=== PATIENT | female | born 1945 | race Caucasian/White ===

== ENCOUNTER 2017-09-27 17:27 | Inpatient (IN) | payer MEDICARE ==
[~2017-09-27] VITALS: Ht 170.2 cm; Wt 74.4 kg
[2017-09-27 18:20] LABS: BASOPHILS % (AUTO) 0.9 % (0.0-5.0); EOSINOPHILS % (AUTO) 3.1 % (0.0-8.0); LYMPHOCYTES % (AUTO) 49.8 % (21.0-51.0); MEAN CORPUSCULAR HEMOGLOBIN 31.6 pg (27.0-33.0); MEAN CORPUSCULAR HGB CONC 35.1 g/dL (32.0-36.0); MONOCYTES % (AUTO) 10.6 % (3.0-13.0); NEUTROPHILS % (AUTO) 35.6 % (40.0-77.0); PLATELET COUNT (AUTO) 132 K/uL (130-400); RED BLOOD CELL COUNT(AUTO) 3.11 MIL/uL (4.00-5.50); RED CELL DISTRIBUTION WIDTH 21.2 % (11.0-15.5); WHITE BLOOD COUNT (AUTO) 2.9 K/uL (4.8-10.8)
[2017-09-27 18:30] LABS: CREATININE 1.4 mg/dL (0.5-1.5); POTASSIUM 4.6 mmol/L (3.5-5.1)
[2017-09-27 18:35] LABS: ALBUMIN 3.3 g/dL (3.5-5.0); BILIRUBIN,TOTAL 0.4 mg/dL (0.2-1.0); TOTAL PROTEIN, SERUM 6.6 g/dL (6.0-8.3)
[2017-09-27] MEDS ORDERED: SODIUM CHLORIDE 0.9% 1000ML 1,000 ML IV ONE (18:46)
[2017-09-27] MEDS ORDERED: ONDANSETRON HCL MDV 20ML 2 MG/ML VIAL ONE (18:46)
[2017-09-27] MEDS ORDERED: MORPHINE SULFATE 4 MG/1ML SYG ONE (18:47)
[2017-09-27] MEDS ORDERED: IOPAMIDOL-370 75 ML VIAL IV ONE (19:06)
[2017-09-27 19:45] LABS: APPEARANCE,URINE Clear (CLEAR); BILIRUBIN,URINE Negative (NEGATIVE); COLOR,URINE Yellow (YELLOW); GLUCOSE, URINE (UA) Negative (NEGATIVE); KETONES,URINE Negative (NEGATIVE); LEUKOCYTE ESTERASE ,URINE Negative (NEGATIVE); NITRATE,URINE Negative (NEGATIVE); OCCULT BLOOD,URINE Negative (NEGATIVE); PH,URINE 5.5 (5.0-8.0); PROTEIN,URINE Negative (NEGATIVE)
[2017-09-27 19:54] LABS: BAND NEUTROPHILS % (MANUAL) 4 % (0-2); EOSINOPHILS % (MANUAL) 1 % (1-6); LYMPHOCYTES % (MANUAL) 44 % (22-44); MONOCYTES % (MANUAL) 5 % (2-9); REACTIVE LYMPHOCYTES 2 % (0-0); SEGMENTED NEUTROPHILS % 44 % (40-70)
[2017-09-27 19:55] LABS: MAN.DIFF COMMENT-IMPRESSION MANUAL DIFFERENTIAL
[2017-09-27] MEDS ORDERED: LACTULOSE 20 GM/30 ML UDCUP ONE (20:35)
[2017-09-27 23:00] VITALS: BP 124/58
[2017-09-28] MEDS: SODIUM CHLORIDE 0.9% 1000ML 1,000 ML IV SCH ×2 (01:15→18:02)
[2017-09-28] MEDS ORDERED: ONDANSETRON HCL MDV 20ML 2 MG/ML VIAL IVP PRN (01:15)
[2017-09-28] MEDS: LACTULOSE 20 GM/30 ML UDCUP PO SCH ×4 (02:14→22:51)
[2017-09-28 04:09] VITALS: BP 112/52
[2017-09-28 05:48] LABS: HEMATOCRIT 25.5 % (36-48); MEAN CORPUSCULAR HEMOGLOBIN 30.3 pg (27.0-33.0); MEAN CORPUSCULAR HGB CONC 33.2 g/dL (32.0-36.0); MEAN CORPUSCULAR VOLUME 91.3 fL (79-99); NUCLEATED RED BLOOD CELLS 0.1 % (0.0-0.19); PLATELET COUNT (AUTO) 117 K/uL (130-400); RED CELL DISTRIBUTION WIDTH 21.4 % (11.0-15.5); WHITE BLOOD COUNT (AUTO) 2.8 K/uL (4.8-10.8)
[2017-09-28 05:57] LABS: BILIRUBIN,TOTAL 0.3 mg/dL (0.2-1.0); CREATININE 1.6 mg/dL (0.5-1.5); POTASSIUM 4.5 mmol/L (3.5-5.1); TOTAL PROTEIN, SERUM 6.1 g/dL (6.0-8.3)
[2017-09-28 08:00] VITALS: BP 122/75
[2017-09-28] MEDS ORDERED: POTASSIUM CHLORIDE 20 MEQ ERTAB PO PRN (08:00)
[2017-09-28] MEDS ORDERED: GUAIFENESIN-DM 200/20 MG 10 ML PO PRN (08:00)
[2017-09-28] MEDS ORDERED: MAG HYDROX/AL HYDROX/SIMETH ES 30 ML SUSP UDCUP PO PRN (08:00)
[2017-09-28] MEDS ORDERED: LACTULOSE 20 GM/30 ML UDCUP PO PRN (08:00)
[2017-09-28] MEDS ORDERED: NITROGLYCERIN 0.4 MG SL TAB SL PRN (08:00)
[2017-09-28] MEDS ORDERED: POTASSIUM CHLORIDE 20MEQ/100ML 100 ML IV PRN (08:00)
[2017-09-28] MEDS ORDERED: LIDOCAINE HCL-MPF 1% 2ML VIAL IVP PRN (08:00)
[2017-09-28] MEDS ORDERED: ONDANSETRON HCL 4 MG/2 ML VIAL IV PRN (08:00)
[2017-09-28] MEDS ORDERED: HYDRALAZINE HCL 20 MG/ML VIAL IV PRN ×2 (08:00→08:45)
[2017-09-28] MEDS ORDERED: POTASSIUM CHLORIDE 10% ELIXIR 20 MEQ/15 ML UDCUP PO PRN (08:00)
[2017-09-28] MEDS ORDERED: GADOBENATE DIMEGLUMINE 10 ML IV ONE (08:25)
[2017-09-28] MEDS: FAMOTIDINE 20MG TAB 20 MG TAB PO SCH ×2 (09:09→22:51)
[2017-09-28] MEDS: ENOXAPARIN SODIUM 40 MG/0.4 ML SYRINGE SQ SCH (09:10)
[2017-09-28] MEDS: MORPHINE SULFATE 4 MG/1ML SYG IV PRN (10:50)
[2017-09-28 12:00] VITALS: BP 126/61
[2017-09-28] MEDS: ALBUMIN (HUMAN) 25% 100 ML IV SCH ×2 (12:03→17:56)
[2017-09-28 16:00] VITALS: BP 123/59
[2017-09-28 20:00] VITALS: BP 142/70
[2017-09-29] VITALS: BP 134/74
[2017-09-29] MEDS: ALBUMIN (HUMAN) 25% 100 ML IV SCH (00:36)
[2017-09-29] MEDS: LACTULOSE 20 GM/30 ML UDCUP PO SCH ×6 (00:36→20:21)
[2017-09-29 04:00] VITALS: BP 140/63
[2017-09-29 04:40] LABS: HEMATOCRIT 22.5 % (36-48); MEAN CORPUSCULAR HEMOGLOBIN 32.2 pg (27.0-33.0); MEAN CORPUSCULAR HGB CONC 35.4 g/dL (32.0-36.0); MEAN CORPUSCULAR VOLUME 91.1 fL (79-99); NUCLEATED RED BLOOD CELLS 0.2 % (0.0-0.19); PLATELET COUNT (AUTO) 118 K/uL (130-400); RED BLOOD CELL COUNT(AUTO) 2.47 MIL/uL (4.00-5.50); RED CELL DISTRIBUTION WIDTH 22.3 % (11.0-15.5); WHITE BLOOD COUNT (AUTO) 2.3 K/uL (4.8-10.8)
[2017-09-29 04:50] LABS: CREATININE 1.4 mg/dL (0.5-1.5); POTASSIUM 4.7 mmol/L (3.5-5.1)
[2017-09-29 05:42] LABS: BAND NEUTROPHILS % (MANUAL) 5 % (0-2); BASOPHILS % (MANUAL) 1 % (0-2); EOSINOPHILS % (MANUAL) 2 % (1-6); LYMPHOCYTES % (MANUAL) 53 % (22-44); MAN.DIFF COMMENT-IMPRESSION MANUAL DIFFERENTIAL; MONOCYTES % (MANUAL) 8 % (2-9); SEGMENTED NEUTROPHILS % 31 % (40-70)
[2017-09-29 05:43] LABS: PLATELET MORPHOLOGY COMMENT SLIGHTLY DECREASED
[2017-09-29 07:41] VITALS: BP 130/70
[2017-09-29] MEDS: FAMOTIDINE 20MG TAB 20 MG TAB PO SCH ×2 (08:40→20:21)
[2017-09-29] MEDS: ENOXAPARIN SODIUM 40 MG/0.4 ML SYRINGE SQ SCH (08:41)
[2017-09-29] MEDS ORDERED: DIAZ5ORA PO (08:48)
[2017-09-29] MEDS ORDERED: CREON12 PO (08:48)
[2017-09-29] MEDS ORDERED: FOLI0.8C PO (08:55)
[2017-09-29] MEDS ORDERED: ESTR-3 PO (08:55)
[2017-09-29] MEDS ORDERED: LYSI100014 PO (08:55)
[2017-09-29] MEDS ORDERED: SPIR100T5 PO (08:55)
[2017-09-29] MEDS ORDERED: ENAL10TA PO (08:55)
[2017-09-29] MEDS ORDERED: PENT400T12 PO (08:55)
[2017-09-29] MEDS ORDERED: GLUC-208 PO (08:55)
[2017-09-29] MEDS ORDERED: DILT240C3 PO (08:55)
[2017-09-29] MEDS: MORPHINE SULFATE 4 MG/1ML SYG IV PRN (10:38)
[2017-09-29] MEDS ORDERED: BISM525O10 PO (10:41)
[2017-09-29 12:00] VITALS: BP 108/51
[2017-09-29] MEDS: RIFAXIMIN 550 MG TABLET PO SCH ×2 (13:21→20:21)
[2017-09-29 15:58] VITALS: BP 117/64
[2017-09-29 20:00] VITALS: BP 126/64
[2017-09-30] VITALS: BP 128/68
[2017-09-30] MEDS: LACTULOSE 20 GM/30 ML UDCUP PO SCH ×4 (00:26→12:38)
[2017-09-30 04:00] VITALS: BP 132/68
[2017-09-30 04:43] LABS: MEAN CORPUSCULAR HEMOGLOBIN 30.7 pg (27.0-33.0); MEAN CORPUSCULAR HGB CONC 34.1 g/dL (32.0-36.0); MEAN CORPUSCULAR VOLUME 90.1 fL (79-99); NUCLEATED RED BLOOD CELLS 0.3 % (0.0-0.19); PLATELET COUNT (AUTO) 126 K/uL (130-400); RED BLOOD CELL COUNT(AUTO) 2.66 MIL/uL (4.00-5.50); RED CELL DISTRIBUTION WIDTH 22.3 % (11.0-15.5); WHITE BLOOD COUNT (AUTO) 2.4 K/uL (4.8-10.8)
[2017-09-30 04:48] LABS: CREATININE 1.4 mg/dL (0.5-1.5); POTASSIUM 4.1 mmol/L (3.5-5.1)
[2017-09-30 05:16] LABS: BAND NEUTROPHILS % (MANUAL) 11 % (0-2); BASOPHILS % (MANUAL) 2 % (0-2); EOSINOPHILS % (MANUAL) 5 % (1-6); LYMPHOCYTES % (MANUAL) 37 % (22-44); MONOCYTES % (MANUAL) 6 % (2-9); REACTIVE LYMPHOCYTES 6 % (0-0); SEGMENTED NEUTROPHILS % 33 % (40-70)
[2017-09-30 05:17] LABS: MAN.DIFF COMMENT-IMPRESSION MANUAL DIFFERENTIAL; PLATELET MORPHOLOGY COMMENT ADEQUATE
[2017-09-30 08:05] VITALS: BP 146/71
[2017-09-30 11:31] VITALS: BP 154/76
[2017-09-30] MEDS: RIFAXIMIN 550 MG TABLET PO SCH (12:38)
[2017-09-30] MEDS: ENOXAPARIN SODIUM 40 MG/0.4 ML SYRINGE SQ SCH (12:39)
[2017-09-30] MEDS: FAMOTIDINE 20MG TAB 20 MG TAB PO SCH (12:39)
[2017-09-30] MEDS ORDERED: HEPARIN SODIUM/PF 100UNIT/ML 5ML SYRINGE IV SCH (12:45)
== END 2017-09-30 14:25 | disposition home or self-care (01) | DRG 441 ==
LOC: EDH 17:27 → EDHIP 17:28 → INTOOBSV 18:13 → OBSVTOIN 18:13 → EDHIP 18:13 → UNDOADMOB 18:13 → EDHIP 22:27 → 3BH 22:27
PROVIDERS: ADMIT Internal Medicine Hematology & Oncology; ATTEND Internal Medicine Hematology & Oncology
DX: K72.90 Hepatic failure, unspecified without coma (principal); G93.41 Metabolic encephalopathy; N17.9 Acute kidney failure, unspecified; D61.811 Other drug-induced pancytopenia; R18.8 Other ascites; C25.9 Malignant neoplasm of pancreas, unspecified; C78.6 Secondary malignant neoplasm of retroperitoneum and peritoneum; E86.0 Dehydration; N28.1 Cyst of kidney, acquired; D64.9 Anemia, unspecified; I10 Essential (primary) hypertension; K76.0 Fatty (change of) liver, not elsewhere classified; Z85.3 Personal history of malignant neoplasm of breast; Z85.820 Personal history of malignant melanoma of skin; Z90.411 Acquired partial absence of pancreas; Z92.21 Personal history of antineoplastic chemotherapy; Z51.11 Encounter for antineoplastic chemotherapy; Z88.8 Allergy status to other drugs, medicaments and biological substances
CPT/HCPCS: 36415; 70553; 74178; 80048; 80053; 81003; 82140; 85025; 85027; A9577; G0378; J1642; J1650; J2270; J2405; J7030; P9046; Q9967

== ENCOUNTER 2017-10-07 17:03 | Inpatient (IN) | payer MEDICARE ==
[~2017-10-07] VITALS: Ht 170.2 cm; Wt 80.1 kg
[~2017-10-07 17:03] MED LIST: BISM525O10 PO; CREON12 PO; DIAZ5ORA PO; DILT240C3 PO; ENAL10TA PO; ESTR-3 PO; FOLI0.8C PO; GLUC-208 PO; LYSI100014 PO; PENT400T12 PO; SPIR100T5 PO
[2017-10-07 17:41] LABS: BASOPHILS % (AUTO) 0.5 % (0.0-5.0); EOSINOPHILS % (AUTO) 0.4 % (0.0-8.0); HEMATOCRIT 26.6 % (36-48); LYMPHOCYTES % (AUTO) 23.1 % (21.0-51.0); MEAN CORPUSCULAR HEMOGLOBIN 32.6 pg (27.0-33.0); MEAN CORPUSCULAR HGB CONC 34.7 g/dL (32.0-36.0); NUCLEATED RED BLOOD CELLS 0.3 % (0.0-0.19); PLATELET COUNT (AUTO) 217 K/uL (130-400); RED BLOOD CELL COUNT(AUTO) 2.83 MIL/uL (4.00-5.50); WHITE BLOOD COUNT (AUTO) 9.1 K/uL (4.8-10.8)
[2017-10-07 17:51] LABS: CREATININE 1.7 mg/dL (0.5-1.5); POTASSIUM 4.9 mmol/L (3.5-5.1)
[2017-10-07 18:04] LABS: ALBUMIN 3.9 g/dL (3.5-5.0); BILIRUBIN,TOTAL 0.3 mg/dL (0.2-1.0); TOTAL PROTEIN, SERUM 7.2 g/dL (6.0-8.3)
[2017-10-07 19:36] LABS: APPEARANCE,URINE Clear (CLEAR); BILIRUBIN,URINE Negative (NEGATIVE); COLOR,URINE Yellow (YELLOW); GLUCOSE, URINE (UA) Negative (NEGATIVE); KETONES,URINE Negative (NEGATIVE); LEUKOCYTE ESTERASE ,URINE Negative (NEGATIVE); NITRATE,URINE Negative (NEGATIVE); OCCULT BLOOD,URINE Negative (NEGATIVE); PROTEIN,URINE Negative (NEGATIVE)
[2017-10-07 19:50] VITALS: BP 137/70
[2017-10-07] MEDS ORDERED: SODIUM CHLORIDE 0.9% 1000ML 1,000 ML IV SCH (21:15)
[2017-10-07] MEDS: LACTULOSE 20 GM/30 ML UDCUP PO SCH (22:23)
[2017-10-07] MEDS: RIFAXIMIN 550 MG TABLET PO SCH (23:19)
[2017-10-08 00:08] VITALS: BP 130/68
[2017-10-08] MEDS ORDERED: ONDANSETRON 4 MG TABLET PO PRN (00:45)
[2017-10-08] MEDS ORDERED: ACETAMINOPHEN 325 MG TAB PO PRN ×3 (00:45→09:15)
[2017-10-08] MEDS ORDERED: ONDANSETRON 4 MG TABLET ONE (01:04)
[2017-10-08] MEDS: LACTULOSE 20 GM/30 ML UDCUP PO SCH ×6 (01:09→22:05)
[2017-10-08] MEDS: MORPHINE SULFATE 4 MG/1ML SYG IVP PRN ×3 (01:09→23:55)
[2017-10-08] MEDS ORDERED: PENT1TAB3 PO (02:44)
[2017-10-08] MEDS ORDERED: RIFA550T PO (02:44)
[2017-10-08 04:40] VITALS: BP 147/61
[2017-10-08 04:43] LABS: HEMATOCRIT 24.9 % (36-48); MEAN CORPUSCULAR HEMOGLOBIN 31.2 pg (27.0-33.0); MEAN CORPUSCULAR HGB CONC 33.3 g/dL (32.0-36.0); MEAN CORPUSCULAR VOLUME 93.6 fL (79-99); NUCLEATED RED BLOOD CELLS 0.2 % (0.0-0.19); PLATELET COUNT (AUTO) 182 K/uL (130-400); RED BLOOD CELL COUNT(AUTO) 2.66 MIL/uL (4.00-5.50); RED CELL DISTRIBUTION WIDTH 25.1 % (11.0-15.5); WHITE BLOOD COUNT (AUTO) 9.3 K/uL (4.8-10.8)
[2017-10-08 05:02] LABS: CREATININE 1.7 mg/dL (0.5-1.5); POTASSIUM 5.3 mmol/L (3.5-5.1)
[2017-10-08 08:00] VITALS: BP 114/65
[2017-10-08] MEDS ORDERED: PANTOPRAZOLE 40 MG/VIAL IVP SCH (09:00)
[2017-10-08] MEDS: RIFAXIMIN 550 MG TABLET PO SCH ×2 (09:08→22:05)
[2017-10-08] MEDS ORDERED: MAG HYDROX/AL HYDROX/SIMETH ES 30 ML SUSP UDCUP PO PRN (09:15)
[2017-10-08] MEDS ORDERED: GUAIFENESIN-DM 200/20 MG 10 ML PO PRN (09:15)
[2017-10-08] MEDS ORDERED: ONDANSETRON HCL 4 MG/2 ML VIAL IV PRN (09:15)
[2017-10-08] MEDS ORDERED: LACTULOSE 20 GM/30 ML UDCUP PO PRN (09:15)
[2017-10-08] MEDS ORDERED: NITROGLYCERIN 0.4 MG SL TAB SL PRN (09:15)
[2017-10-08] MEDS ORDERED: HYDRALAZINE HCL 20 MG/ML VIAL IV PRN (09:15)
[2017-10-08 11:00] VITALS: BP 110/55
[2017-10-08] MEDS: DILTIAZEM HCL 120 MG CAP.SR.24H PO SCH (11:48)
[2017-10-08] MEDS: [UNRECOGNIZED DRUG - OTHER] PO SCH ×2 (11:48→17:33)
[2017-10-08] MEDS: ALBUMIN (HUMAN) 25% 100 ML IV SCH ×3 (11:50→23:39)
[2017-10-08 12:06] LABS: INR 1.03 (0.85-1.15); PARTIAL THROMBOPLASTIN TIME 20.4 SEC (26.3-35.5); PROTHROMBIN TIME 10.8 SEC (9.6-11.6)
[2017-10-08] MEDS: SODIUM CHLORIDE 0.9% 1000ML 1,000 ML IV SCH (13:00)
[2017-10-08] MEDS: PENTOXIFYLLINE 400 MG TABLET.SA PO SCH ×2 (17:33→22:05)
[2017-10-08] MEDS ORDERED: RIFAXIMIN 550 MG TABLET PO SCH (21:00)
[2017-10-09 00:29] VITALS: BP 136/62
[2017-10-09] MEDS: LACTULOSE 20 GM/30 ML UDCUP PO SCH ×6 (01:35→21:26)
[2017-10-09] MEDS: MORPHINE SULFATE 4 MG/1ML SYG IVP PRN ×2 (04:14→12:11)
[2017-10-09 04:35] VITALS: BP 151/76
[2017-10-09 07:00] LABS: MEAN CORPUSCULAR VOLUME 94.4 fL (79-99); NUCLEATED RED BLOOD CELLS 0.2 % (0.0-0.19); PLATELET COUNT (AUTO) 141 K/uL (130-400); RED BLOOD CELL COUNT(AUTO) 2.08 MIL/uL (4.00-5.50); RED CELL DISTRIBUTION WIDTH 25.7 % (11.0-15.5)
[2017-10-09 07:03] LABS: HEMATOCRIT 19.7 % (36-48)
[2017-10-09 07:17] LABS: CREATININE 1.3 mg/dL (0.5-1.5); POTASSIUM 3.7 mmol/L (3.5-5.1)
[2017-10-09] MEDS: [UNRECOGNIZED DRUG - OTHER] PO SCH ×3 (07:30→18:00)
[2017-10-09 08:00] VITALS: BP 142/74
[2017-10-09] MEDS: PANTOPRAZOLE SODIUM 40 MG TABLET.DR PO SCH (08:28)
[2017-10-09] MEDS: SODIUM CHLORIDE 0.9% 1000ML 1,000 ML IV SCH ×2 (09:00→21:26)
[2017-10-09] MEDS: LYSINE 1000 MG PO SCH (09:00)
[2017-10-09] MEDS: PENTOXIFYLLINE 400 MG TABLET.SA PO SCH ×3 (09:00→21:26)
[2017-10-09] MEDS: RIFAXIMIN 550 MG TABLET PO SCH ×2 (10:24→21:26)
[2017-10-09] MEDS: GLUCOSAMINE-CHONDROITIN PO SCH (10:24)
[2017-10-09] MEDS: FOLIC ACID 1 MG TABLET PO SCH (10:24)
[2017-10-09] MEDS: DILTIAZEM HCL 120 MG CAP.SR.24H PO SCH (10:25)
[2017-10-09 11:00] VITALS: BP 128/69
[2017-10-09 16:00] VITALS: BP 134/77
[2017-10-09] MEDS ORDERED: SODIUM CHLORIDE 0.9% 500ML 500 ML IV ONE (17:38)
[2017-10-09 19:40] VITALS: BP 138/69
[2017-10-09] MEDS: SODIUM BICARBONATE 650 MG TAB PO SCH (21:26)
[2017-10-09] MEDS: MORPHINE SULFATE 2 MG/ML 1ML SYG IVP PRN (21:27)
[2017-10-10 00:29] VITALS: BP 156/89
[2017-10-10] MEDS: LACTULOSE 20 GM/30 ML UDCUP PO SCH ×6 (01:09→22:09)
[2017-10-10] MEDS: MORPHINE SULFATE 2 MG/ML 1ML SYG IVP PRN ×2 (03:51→23:14)
[2017-10-10 04:00] VITALS: BP 140/74
[2017-10-10] MEDS: SODIUM CHLORIDE 0.9% 1000ML 1,000 ML IV SCH (05:13)
[2017-10-10 05:38] LABS: HEMATOCRIT 30.5 % (36-48); MEAN CORPUSCULAR HEMOGLOBIN 31.9 pg (27.0-33.0); MEAN CORPUSCULAR HGB CONC 34.4 g/dL (32.0-36.0); MEAN CORPUSCULAR VOLUME 92.7 fL (79-99); PLATELET COUNT (AUTO) 138 K/uL (130-400); RED BLOOD CELL COUNT(AUTO) 3.28 MIL/uL (4.00-5.50); RED CELL DISTRIBUTION WIDTH 22.4 % (11.0-15.5); WHITE BLOOD COUNT (AUTO) 9.5 K/uL (4.8-10.8)
[2017-10-10 05:47] LABS: BAND NEUTROPHILS % (MANUAL) 1 % (0-2); LYMPHOCYTES % (MANUAL) 14 % (22-44); MAN.DIFF COMMENT-IMPRESSION MANUAL DIFFERENTIAL; MONOCYTES % (MANUAL) 9 % (2-9); PLATELET MORPHOLOGY COMMENT SLIGHTLY DECREASED; SEGMENTED NEUTROPHILS % 76 % (40-70)
[2017-10-10 05:52] LABS: CREATININE 1.4 mg/dL (0.5-1.5); POTASSIUM 3.8 mmol/L (3.5-5.1)
[2017-10-10 06:19] LABS: FERRITIN 141 ng/mL (15-150); IRON, SERUM 110 mcg/dL (50-170)
[2017-10-10] MEDS: [UNRECOGNIZED DRUG - OTHER] PO SCH ×3 (07:30→15:31)
[2017-10-10] MEDS: PANTOPRAZOLE SODIUM 40 MG TABLET.DR PO SCH ×2 (07:30→15:32)
[2017-10-10 08:00] VITALS: BP 138/86
[2017-10-10] MEDS: LYSINE 1000 MG PO SCH (09:00)
[2017-10-10] MEDS: PENTOXIFYLLINE 400 MG TABLET.SA PO SCH ×3 (09:00→22:10)
[2017-10-10] MEDS: SODIUM BICARBONATE 650 MG TAB PO SCH ×2 (09:00→22:10)
[2017-10-10] MEDS: RIFAXIMIN 550 MG TABLET PO SCH ×2 (09:00→22:10)
[2017-10-10 11:00] VITALS: BP 157/85
[2017-10-10] MEDS: DILTIAZEM HCL 120 MG CAP.SR.24H PO SCH (15:32)
[2017-10-10] MEDS: FOLIC ACID 1 MG TABLET PO SCH (15:32)
[2017-10-10] MEDS: GLUCOSAMINE-CHONDROITIN PO SCH (15:32)
[2017-10-10 16:00] VITALS: BP 152/81
[2017-10-11] MEDS: LACTULOSE 20 GM/30 ML UDCUP PO SCH ×6 (01:19→21:52)
[2017-10-11] MEDS ORDERED: IPRATROPIUM/ALBUTEROL SULFATE 3 ML SOLUTION IH PRN (02:00)
[2017-10-11] MEDS ORDERED: IPRATROPIUM/ALBUTEROL SULFATE 3 ML SOLUTION IH ONE (02:10)
[2017-10-11 04:00] VITALS: BP 148/70
[2017-10-11] MEDS: [UNRECOGNIZED DRUG - OTHER] PO SCH ×3 (06:14→16:40)
[2017-10-11 06:38] LABS: HEMATOCRIT 30.5 % (36-48); MEAN CORPUSCULAR HEMOGLOBIN 32.9 pg (27.0-33.0); MEAN CORPUSCULAR HGB CONC 35.4 g/dL (32.0-36.0); MEAN CORPUSCULAR VOLUME 92.9 fL (79-99); PLATELET COUNT (AUTO) 136 K/uL (130-400); RED BLOOD CELL COUNT(AUTO) 3.29 MIL/uL (4.00-5.50); RED CELL DISTRIBUTION WIDTH 22.4 % (11.0-15.5); WHITE BLOOD COUNT (AUTO) 9.7 K/uL (4.8-10.8)
[2017-10-11 07:17] LABS: CREATININE 1.2 mg/dL (0.5-1.5); POTASSIUM 4.1 mmol/L (3.5-5.1)
[2017-10-11 08:00] VITALS: BP 140/75
[2017-10-11 08:09] LABS: BAND NEUTROPHILS % (MANUAL) 3 % (0-2); LYMPHOCYTES % (MANUAL) 13 % (22-44); MAN.DIFF COMMENT-IMPRESSION MANUAL DIFFERENTIAL; MONOCYTES % (MANUAL) 7 % (2-9); SEGMENTED NEUTROPHILS % 77 % (40-70)
[2017-10-11 08:13] LABS: PLATELET MORPHOLOGY COMMENT ADEQUATE
[2017-10-11] MEDS: LYSINE 1000 MG PO SCH (09:00)
[2017-10-11] MEDS: MORPHINE SULFATE 2 MG/ML 1ML SYG IVP PRN ×4 (09:46→22:01)
[2017-10-11] MEDS: GLUCOSAMINE-CHONDROITIN PO SCH (09:52)
[2017-10-11] MEDS: FOLIC ACID 1 MG TABLET PO SCH (09:53)
[2017-10-11] MEDS: PENTOXIFYLLINE 400 MG TABLET.SA PO SCH ×3 (09:53→21:52)
[2017-10-11] MEDS: RIFAXIMIN 550 MG TABLET PO SCH ×2 (09:53→21:52)
[2017-10-11] MEDS: SODIUM BICARBONATE 650 MG TAB PO SCH ×2 (09:53→21:52)
[2017-10-11] MEDS: DILTIAZEM HCL 120 MG CAP.SR.24H PO SCH (09:53)
[2017-10-11 16:00] VITALS: BP 127/77
[2017-10-11 19:49] VITALS: BP 131/75
[2017-10-12] MEDS: LACTULOSE 20 GM/30 ML UDCUP PO SCH ×4 (01:15→14:46)
[2017-10-12] MEDS: MORPHINE SULFATE 2 MG/ML 1ML SYG IVP PRN (01:23)
[2017-10-12 04:00] VITALS: BP 130/83
[2017-10-12 04:41] LABS: HEMATOCRIT 32.8 % (36-48); MEAN CORPUSCULAR HEMOGLOBIN 33.3 pg (27.0-33.0); MEAN CORPUSCULAR HGB CONC 35.4 g/dL (32.0-36.0); MEAN CORPUSCULAR VOLUME 93.9 fL (79-99); NUCLEATED RED BLOOD CELLS 0.1 % (0.0-0.19); PLATELET COUNT (AUTO) 152 K/uL (130-400); RED BLOOD CELL COUNT(AUTO) 3.49 MIL/uL (4.00-5.50); RED CELL DISTRIBUTION WIDTH 22.7 % (11.0-15.5); WHITE BLOOD COUNT (AUTO) 9.1 K/uL (4.8-10.8)
[2017-10-12 04:54] LABS: CREATININE 1.3 mg/dL (0.5-1.5); POTASSIUM 4.3 mmol/L (3.5-5.1)
[2017-10-12] MEDS: PANTOPRAZOLE SODIUM 40 MG TABLET.DR PO SCH (05:49)
[2017-10-12] MEDS: [UNRECOGNIZED DRUG - OTHER] PO SCH ×2 (05:49→14:46)
[2017-10-12] MEDS: LYSINE 1000 MG PO SCH (09:00)
[2017-10-12] MEDS: FOLIC ACID 1 MG TABLET PO SCH (09:48)
[2017-10-12] MEDS: DILTIAZEM HCL 120 MG CAP.SR.24H PO SCH (09:48)
[2017-10-12] MEDS: SODIUM BICARBONATE 650 MG TAB PO SCH (09:48)
[2017-10-12] MEDS: GLUCOSAMINE-CHONDROITIN PO SCH (09:48)
[2017-10-12] MEDS: PENTOXIFYLLINE 400 MG TABLET.SA PO SCH ×2 (09:49→14:46)
[2017-10-12] MEDS: RIFAXIMIN 550 MG TABLET PO SCH (09:49)
[2017-10-12 11:35] VITALS: BP 162/93
[2017-10-12] MEDS ORDERED: HEPARIN SODIUM/PF 100UNIT/ML 5ML SYRINGE IV SCH (15:45)
[2017-11-20] MEDS ORDERED: LEVO100T6 PO (06:23)
== END 2017-10-12 16:40 | disposition left against medical advice (07) | DRG 442 ==
LOC: EDH 17:03 → EDHIP 17:04 → 3DH 19:37
PROVIDERS: ADMIT Internal Medicine Hematology & Oncology; ATTEND Internal Medicine Hematology & Oncology
PROC: 30233N1 Transfusion of Nonautologous Red Blood Cells into Peripheral Vein, Percutaneous Approach (ICD-10-PCS; principal; 2017-10-09)
DX: K72.90 Hepatic failure, unspecified without coma (principal); C25.9 Malignant neoplasm of pancreas, unspecified; N17.9 Acute kidney failure, unspecified; E87.2 Acidosis; E86.0 Dehydration; C43.9 Malignant melanoma of skin, unspecified; D63.8 Anemia in other chronic diseases classified elsewhere; E27.9 Disorder of adrenal gland, unspecified; I10 Essential (primary) hypertension; Z51.5 Encounter for palliative care; E78.5 Hyperlipidemia, unspecified; E87.6 Hypokalemia; K76.0 Fatty (change of) liver, not elsewhere classified; M54.10 Radiculopathy, site unspecified; Z90.411 Acquired partial absence of pancreas; Z51.11 Encounter for antineoplastic chemotherapy; Z85.3 Personal history of malignant neoplasm of breast; Z85.820 Personal history of malignant melanoma of skin; Z88.8 Allergy status to other drugs, medicaments and biological substances
CPT/HCPCS: 36415; 36430; 74176; 76700; 80048; 80053; 81003; 82140; 82270; 82728; 83540; 83605; 85025; 85027; 85610; 85730; 86850; 86900; 86901; 86922; 94640; 94664; 97039; C9113; J1642; J2270; J2405; J7030; J7040; P9016; P9046; Q0162

== ENCOUNTER 2018-01-13 14:49 | Inpatient (IN) | payer MEDICARE ==
[~2018-01-13] VITALS: Ht 177.8 cm; Wt 64.4 kg
[~2018-01-13 14:49] MED LIST changes: +LEVO100T6 PO; +PENT1TAB3 PO; +RIFA550T PO
[2018-01-13 15:17] LABS: BASOPHILS % (AUTO) 0.1 % (0.0-5.0); EOSINOPHILS % (AUTO) 2.6 % (0.0-8.0); HEMATOCRIT 29.5 % (36-48); LYMPHOCYTES % (AUTO) 7.9 % (21.0-51.0); MEAN CORPUSCULAR HEMOGLOBIN 32.7 pg (27.0-33.0); MEAN CORPUSCULAR HGB CONC 32.8 g/dL (32.0-36.0); MEAN CORPUSCULAR VOLUME 99.9 fL (79-99); MONOCYTES % (AUTO) 7.7 % (3.0-13.0); NEUTROPHILS % (AUTO) 81.7 % (40.0-77.0); NUCLEATED RED BLOOD CELLS 0.3 % (0.0-0.19); PLATELET COUNT (AUTO) 97 K/uL (130-400); RED BLOOD CELL COUNT(AUTO) 2.96 MIL/uL (4.00-5.50); RED CELL DISTRIBUTION WIDTH 15.6 % (11.0-15.5); WHITE BLOOD COUNT (AUTO) 1.9 K/uL (4.8-10.8)
[2018-01-13 15:30] LABS: CARBON DIOXIDE 22 mmol/L (21-32); CHLORIDE 96 mmol/L (101-111); CREATININE 1.3 mg/dL (0.5-1.5); GLOMERULAR FILTR. RATE CALC 43 mL/min (>60); GLUCOSE,RANDOM 187 mg/dL (70-105); POTASSIUM 5.2 mmol/L (3.5-5.1); SODIUM SERUM 129 mmol/L (136-145); UREA NITROGEN, BLOOD 28 mg/dL (7-18)
[2018-01-13 15:35] LABS: ALANINE AMINOTRANSFERASE 62 U/L (12-78); AMYLASE 58 U/L (25-115); ASPARTATE AMINOTRANSFERASE 39 U/L (10-37); BILIRUBIN,TOTAL 0.6 mg/dL (0.2-1.0); LIPASE < 50 U/L (114-286); TOTAL PROTEIN, SERUM 6.6 g/dL (6.0-8.3)
[2018-01-13] MEDS ORDERED: SODIUM CHLORIDE 0.9% 1000ML 1,000 ML IV ONE (16:07)
[2018-01-13 16:32] LABS: BAND NEUTROPHILS % (MANUAL) 15 % (0-2); LYMPHOCYTES % (MANUAL) 6 % (22-44); MAN.DIFF COMMENT-IMPRESSION MANUAL DIFFERENTIAL; MONOCYTES % (MANUAL) 11 % (2-9); SEGMENTED NEUTROPHILS % 68 % (40-70)
[2018-01-13 16:33] LABS: PLATELET MORPHOLOGY COMMENT DECREASED
[2018-01-13 17:45] VITALS: BP 104/68
[2018-01-13 19:00] VITALS: BP 121/64
[2018-01-13] MEDS ORDERED: AMYL1CAP62 PO (19:09)
[2018-01-13] MEDS ORDERED: MAGIC240 MM (19:12)
[2018-01-13] MEDS ORDERED: DICY20TA11 PO (19:12)
[2018-01-13] MEDS: ONDANSETRON HCL 4 MG/2 ML VIAL IVP PRN (20:32)
[2018-01-13] MEDS: MORPHINE SULFATE 4 MG/1ML SYG IVP PRN (20:37)
[2018-01-13] MEDS: LEVOFLOXACIN 500 MG/D5W 100 ML 100 ML IV SCH (22:48)
[2018-01-13] MEDS: METRONIDAZOLE 500 MG TABLET PO SCH (22:49)
[2018-01-14] VITALS (7 sets, daily range): BP systolic 120–134; BP diastolic 58–69
[2018-01-14] MEDS: ONDANSETRON HCL 4 MG/2 ML VIAL IVP PRN (02:38)
[2018-01-14] MEDS: SODIUM CHLORIDE 0.9% 1000ML 1,000 ML IV SCH ×2 (02:41→14:39)
[2018-01-14] MEDS: METRONIDAZOLE 500 MG TABLET PO SCH ×3 (05:16→21:07)
[2018-01-14] MEDS ORDERED: TBO-FILGRASTIM 480 MCG/0.8 ML ML SQ SCH (08:45)
[2018-01-14] MEDS ORDERED: [UNRECOGNIZED DRUG - OTHER] MM PRN (09:15)
[2018-01-14] MEDS ORDERED: LIDOCAINE HCL MM PRN (09:15)
[2018-01-14] MEDS ORDERED: PENTAZOCINE HCL PO SCH (09:15)
[2018-01-14] MEDS ORDERED: BISMUTH SUBSALICYLATE 262 MG TAB.CHEW PO PRN (09:15)
[2018-01-14] MEDS ORDERED: NALOXONE HCL PO SCH (09:15)
[2018-01-14] MEDS: FAMOTIDINE/PF 20 MG/2 ML VIAL IV SCH (10:03)
[2018-01-14] MEDS: LIPASE/PROTEASE/AMYLASE 5000/17000/24000 PO SCH ×3 (11:30→17:00)
[2018-01-14] MEDS ORDERED: BISMUTH SUBSALICYLATE 262 MG/15 ML ML PO PRN (12:01)
[2018-01-14] MEDS ORDERED: MAG HYDROX/AL HYDROX/SIMETH 30 ML, LIDOCAINE HCL 2% VISCOUS 30 ML, DIPHENHYDRAMINE HCL ... PO PRN ×3 (12:15)
[2018-01-14] MEDS ORDERED: COMPOUND PO MISCELLANEOUS 1 EACH MISC MISC PRN (12:30)
[2018-01-14] MEDS: VANCOMYCIN 1GM+NS 250ML 250 ML IV SCH (12:30)
[2018-01-14] MEDS: DICYCLOMINE HCL 20 MG TAB PO SCH ×3 (13:00→21:07)
[2018-01-14] MEDS: PENTOXIFYLLINE 400 MG TABLET.SA PO SCH ×2 (14:00→21:08)
[2018-01-14] MEDS ORDERED: AMYLASE PO SCH (14:00)
[2018-01-14] MEDS ORDERED: PROTEASE PO SCH (14:00)
[2018-01-14] MEDS ORDERED: [UNRECOGNIZED DRUG - OTHER] PO SCH (14:00)
[2018-01-14] MEDS ORDERED: LIPASE PO SCH (14:00)
[2018-01-14] MEDS: DIAZEPAM 5 MG TABLET PO SCH (21:08)
[2018-01-14] MEDS: RIFAXIMIN 550 MG TABLET PO SCH (21:09)
[2018-01-14] MEDS: MORPHINE SULFATE 4 MG/1ML SYG IVP PRN (21:18)
[2018-01-15 03:30] VITALS: BP 146/63
[2018-01-15] MEDS: METRONIDAZOLE 500 MG TABLET PO SCH ×3 (04:15→22:02)
[2018-01-15] MEDS: MORPHINE SULFATE 4 MG/1ML SYG IVP PRN ×3 (04:15→21:56)
[2018-01-15] MEDS: LIPASE/PROTEASE/AMYLASE 5000/17000/24000 PO SCH ×3 (06:41→17:15)
[2018-01-15] MEDS: FOLIC ACID 0.8 MG PO SCH (09:00)
[2018-01-15] MEDS: ESTROGEN CON PO SCH (09:00)
[2018-01-15] MEDS: M PROGEST ACET PO SCH (09:00)
[2018-01-15] MEDS: GLUCOSAMINE-CHONDROITIN PO SCH (09:00)
[2018-01-15] MEDS: LYSINE 1000 MG PO SCH (09:30)
[2018-01-15] MEDS: DILTIAZEM HCL 120 MG CAP.SR.24H PO SCH (09:30)
[2018-01-15] MEDS: DIAZEPAM 5 MG TABLET PO SCH ×2 (09:30→22:02)
[2018-01-15] MEDS: PENTOXIFYLLINE 400 MG TABLET.SA PO SCH ×3 (09:30→22:02)
[2018-01-15] MEDS: SPIRONOLACTONE 25 MG TAB PO SCH (09:30)
[2018-01-15] MEDS: RIFAXIMIN 550 MG TABLET PO SCH ×2 (09:30→22:02)
[2018-01-15] MEDS: DICYCLOMINE HCL 20 MG TAB PO SCH ×4 (09:30→22:03)
[2018-01-15] MEDS: LEVOTHYROXINE 100 MCG TABLET PO SCH (09:30)
[2018-01-15] MEDS: FAMOTIDINE/PF 20 MG/2 ML VIAL IV SCH (09:30)
[2018-01-15 11:00] VITALS: BP 128/59
[2018-01-15] MEDS: VANCOMYCIN 1GM+NS 250ML 250 ML IV SCH (12:21)
[2018-01-15] MEDS ORDERED: LOPERAMIDE HCL 2 MG CAP PO PRN (13:15)
[2018-01-15] MEDS: ENALAPRIL MALEATE 10 MG TABLET PO SCH (13:54)
[2018-01-15] MEDS: CLINIMIX E 5%-15% 2,000 ML IV SCH (14:26)
[2018-01-15 16:00] VITALS: BP 141/70
[2018-01-15 19:15] VITALS: BP 116/61
[2018-01-15] MEDS: LEVOFLOXACIN 500 MG/D5W 100 ML 100 ML IV SCH (22:02)
[2018-01-15 23:50] VITALS: BP 100/45
[2018-01-16] MEDS ORDERED: DIPHENHYDRAMINE HCL 25 MG CAPSULE ONE (01:10)
[2018-01-16] MEDS ORDERED: DIPHENHYDRAMINE HCL 25 MG CAPSULE PO PRN (01:15)
[2018-01-16 03:30] VITALS: BP 106/65
[2018-01-16] MEDS: METRONIDAZOLE 500 MG TABLET PO SCH ×2 (05:29→12:47)
[2018-01-16] MEDS: MORPHINE SULFATE 4 MG/1ML SYG IVP PRN ×2 (05:30→13:10)
[2018-01-16] MEDS: LIPASE/PROTEASE/AMYLASE 5000/17000/24000 PO SCH ×3 (06:42→16:47)
[2018-01-16 07:30] VITALS: BP 128/63
[2018-01-16 08:29] LABS: BASOPHILS % (AUTO) 0.2 % (0.0-5.0); EOSINOPHILS % (AUTO) 1.1 % (0.0-8.0); LYMPHOCYTES % (AUTO) 3.7 % (21.0-51.0); MEAN CORPUSCULAR HEMOGLOBIN 33.5 pg (27.0-33.0); MEAN CORPUSCULAR HGB CONC 33.7 g/dL (32.0-36.0); MEAN CORPUSCULAR VOLUME 99.3 fL (79-99); NUCLEATED RED BLOOD CELLS 0.4 % (0.0-0.19); RED BLOOD CELL COUNT(AUTO) 2.52 MIL/uL (4.00-5.50); RED CELL DISTRIBUTION WIDTH 15.7 % (11.0-15.5); WHITE BLOOD COUNT (AUTO) 3.7 K/uL (4.8-10.8)
[2018-01-16] MEDS: DILTIAZEM HCL 120 MG CAP.SR.24H PO SCH (09:00)
[2018-01-16] MEDS: FOLIC ACID 0.8 MG PO SCH (09:00)
[2018-01-16] MEDS: LYSINE 1000 MG PO SCH (09:00)
[2018-01-16] MEDS: ENALAPRIL MALEATE 10 MG TABLET PO SCH (09:00)
[2018-01-16] MEDS: ESTROGEN CON PO SCH (09:00)
[2018-01-16] MEDS: M PROGEST ACET PO SCH (09:00)
[2018-01-16] MEDS: LEVOTHYROXINE 100 MCG TABLET PO SCH (09:00)
[2018-01-16 09:04] LABS: PLATELET COUNT (AUTO) 39 K/uL (130-400)
[2018-01-16] MEDS: FAMOTIDINE/PF 20 MG/2 ML VIAL IV SCH (10:38)
[2018-01-16 11:00] VITALS: BP 91/50
[2018-01-16] MEDS: ONDANSETRON HCL 4 MG/2 ML VIAL IVP PRN (12:47)
[2018-01-16] MEDS: PENTOXIFYLLINE 400 MG TABLET.SA PO SCH ×2 (12:51→14:00)
[2018-01-16] MEDS: VANCOMYCIN 1GM+NS 250ML 250 ML IV SCH (12:51)
[2018-01-16] MEDS: RIFAXIMIN 550 MG TABLET PO SCH (12:52)
[2018-01-16] MEDS: GLUCOSAMINE-CHONDROITIN PO SCH (12:53)
[2018-01-16] MEDS: DICYCLOMINE HCL 20 MG TAB PO SCH ×3 (12:54→16:49)
[2018-01-16] MEDS: SPIRONOLACTONE 25 MG TAB PO SCH (12:54)
[2018-01-16] MEDS: DIAZEPAM 5 MG TABLET PO SCH (12:59)
[2018-01-16] MEDS: CLINIMIX E 5%-15% 2,000 ML IV SCH (13:19)
[2018-01-16 16:00] VITALS: BP 136/69
[2018-01-16 19:00] VITALS: BP 129/73
[2018-01-16 23:00] VITALS: BP 139/63
[2018-01-17] VITALS (8 sets, daily range): BP systolic 127–145; BP diastolic 63–76
[2018-01-17] MEDS: METRONIDAZOLE 500MG/100ML BAG 100 ML IV SCH ×4 (00:15→21:36)
[2018-01-17] MEDS: LIPASE/PROTEASE/AMYLASE 5000/17000/24000 PO SCH ×3 (07:30→15:52)
[2018-01-17] MEDS: ENALAPRIL MALEATE 10 MG TABLET PO SCH (09:00)
[2018-01-17] MEDS: GLUCOSAMINE-CHONDROITIN PO SCH (09:00)
[2018-01-17] MEDS: FOLIC ACID 0.8 MG PO SCH (09:00)
[2018-01-17] MEDS: LYSINE 1000 MG PO SCH (09:00)
[2018-01-17] MEDS: DILTIAZEM HCL 120 MG CAP.SR.24H PO SCH (09:00)
[2018-01-17] MEDS: SPIRONOLACTONE 25 MG TAB PO SCH (09:00)
[2018-01-17] MEDS: LEVOTHYROXINE 100 MCG TABLET PO SCH (09:00)
[2018-01-17] MEDS: M PROGEST ACET PO SCH (09:00)
[2018-01-17] MEDS: ESTROGEN CON PO SCH (09:00)
[2018-01-17] MEDS ORDERED: PHARMACY COMMUNICATION MISC SCH (09:45)
[2018-01-17] MEDS ORDERED: PERMETHRIN LOTION 1% 59ML BOTTLE TP SCH (10:15)
[2018-01-17] MEDS: MORPHINE SULFATE 4 MG/1ML SYG IVP PRN ×4 (10:40→21:48)
[2018-01-17] MEDS: FAMOTIDINE/PF 20 MG/2 ML VIAL IV SCH (10:41)
[2018-01-17] MEDS: NYSTATIN 100000 UNIT/ML 5ML UDCUP PO SCH ×3 (13:00→20:28)
[2018-01-17] MEDS: CLINIMIX E 5%-15% 2,000 ML IV SCH (15:42)
[2018-01-17] MEDS: VANCOMYCIN 1GM+NS 250ML 250 ML IV SCH (17:44)
[2018-01-17] MEDS ORDERED: ASPIRIN 300 MG SUPPOSITORY PR ONE (19:00)
[2018-01-17] MEDS: LEVOFLOXACIN 500 MG/D5W 100 ML 100 ML IV SCH (20:25)
[2018-01-17] MEDS: ONDANSETRON HCL 4 MG/2 ML VIAL IVP PRN (21:47)
[2018-01-17 22:33] LABS: HEMATOCRIT 22.8 % (36-48); MEAN CORPUSCULAR HEMOGLOBIN 33.7 pg (27.0-33.0); MEAN CORPUSCULAR HGB CONC 34.3 g/dL (32.0-36.0); MEAN CORPUSCULAR VOLUME 98.3 fL (79-99); NUCLEATED RED BLOOD CELLS 0.4 % (0.0-0.19); PLATELET COUNT (AUTO) 24 K/uL (130-400); RED BLOOD CELL COUNT(AUTO) 2.32 MIL/uL (4.00-5.50); RED CELL DISTRIBUTION WIDTH 15.7 % (11.0-15.5); WHITE BLOOD COUNT (AUTO) 1.3 K/uL (4.8-10.8)
[2018-01-17 22:44] LABS: CREATININE 0.8 mg/dL (0.5-1.5)
[2018-01-17 22:47] LABS: INR 1.1 (0.85-1.15); PARTIAL THROMBOPLASTIN TIME 27.7 SEC (26.3-35.5); PROTHROMBIN TIME 11.5 SEC (9.6-11.6)
[2018-01-17 22:54] LABS: BILIRUBIN,DIRECT 0.1 mg/dL (0.0-0.3); BILIRUBIN,TOTAL 0.2 mg/dL (0.2-1.0); TOTAL PROTEIN, SERUM 4.7 g/dL (6.0-8.3)
[2018-01-17 23:13] LABS: HEMOGLOBIN A1C 7.7 % (4.0-6.0)
[2018-01-17] MEDS ORDERED: 1/2 NORMAL SALINE + 20 MEQ KCL 1,000 ML IV SCH (23:30)
[2018-01-18] VITALS (23 sets, daily range): BP systolic 108–146; BP diastolic 50–91
[2018-01-18] MEDS ORDERED: POTASSIUM CHLORIDE 20MEQ/100ML 100 ML IV ONE (00:28)
[2018-01-18] MEDS ORDERED: SODIUM CHLORIDE 0.9% 1000ML 1,000 ML IV ONE (00:28)
[2018-01-18] MEDS ORDERED: LIDOCAINE HCL-MPF 1% 2ML VIAL IVP PRN (00:30)
[2018-01-18] MEDS ORDERED: SODIUM CHLORIDE 0.9% 1000ML 1,000 ML IV SCH (00:30)
[2018-01-18] MEDS: MORPHINE SULFATE 4 MG/1ML SYG IVP PRN ×2 (02:33→12:47)
[2018-01-18] MEDS: POTASSIUM CHLORIDE 20MEQ/100ML 100 ML IV PRN (03:05)
[2018-01-18] MEDS: LIPASE/PROTEASE/AMYLASE 5000/17000/24000 PO SCH ×2 (04:41→11:10)
[2018-01-18 05:39] LABS: BASOPHILS % (AUTO) 0.5 % (0.0-5.0); EOSINOPHILS % (AUTO) 5.3 % (0.0-8.0); HEMATOCRIT 22.4 % (36-48); LYMPHOCYTES % (AUTO) 9.1 % (21.0-51.0); MEAN CORPUSCULAR HEMOGLOBIN 33.9 pg (27.0-33.0); MEAN CORPUSCULAR VOLUME 96.9 fL (79-99); MONOCYTES % (AUTO) 13.3 % (3.0-13.0); NEUTROPHILS % (AUTO) 71.8 % (40.0-77.0); NUCLEATED RED BLOOD CELLS 0.7 % (0.0-0.19); PLATELET COUNT (AUTO) 17 K/uL (130-400); RED BLOOD CELL COUNT(AUTO) 2.31 MIL/uL (4.00-5.50); RED CELL DISTRIBUTION WIDTH 15.8 % (11.0-15.5)
[2018-01-18] MEDS: METRONIDAZOLE 500MG/100ML BAG 100 ML IV SCH ×3 (05:45→21:22)
[2018-01-18 05:54] LABS: BILIRUBIN,TOTAL 0.3 mg/dL (0.2-1.0); CREATININE 0.7 mg/dL (0.5-1.5); POTASSIUM 4.4 mmol/L (3.5-5.1); TOTAL PROTEIN, SERUM 4.7 g/dL (6.0-8.3); WHITE BLOOD COUNT (AUTO) 1.1 K/uL (4.8-10.8)
[2018-01-18] MEDS ORDERED: GADODIAMIDE 10 MMOL/20 ML ML IV ONE (07:49)
[2018-01-18] MEDS: ESTROGEN CON PO SCH (09:00)
[2018-01-18] MEDS: NYSTATIN 100000 UNIT/ML 5ML UDCUP PO SCH (09:00)
[2018-01-18] MEDS: SPIRONOLACTONE 25 MG TAB PO SCH (09:00)
[2018-01-18] MEDS: GLUCOSAMINE-CHONDROITIN PO SCH (09:00)
[2018-01-18] MEDS: FOLIC ACID 0.8 MG PO SCH (09:00)
[2018-01-18] MEDS: M PROGEST ACET PO SCH (09:00)
[2018-01-18] MEDS: LYSINE 1000 MG PO SCH (09:00)
[2018-01-18] MEDS: ENALAPRIL MALEATE 10 MG TABLET PO SCH (09:00)
[2018-01-18] MEDS: DILTIAZEM HCL 120 MG CAP.SR.24H PO SCH (09:00)
[2018-01-18] MEDS: LEVOTHYROXINE 100 MCG TABLET PO SCH (09:00)
[2018-01-18] MEDS: FAMOTIDINE/PF 20 MG/2 ML VIAL IV SCH (11:09)
[2018-01-18] MEDS: VANCOMYCIN 1GM+NS 250ML 250 ML IV SCH (11:10)
[2018-01-18] MEDS: CLINIMIX E 5%-15% 2,000 ML IV SCH (14:43)
[2018-01-19] VITALS (18 sets, daily range): BP systolic 116–152; BP diastolic 44–74
[2018-01-19] MEDS: MORPHINE SULFATE 4 MG/1ML SYG IVP PRN ×3 (01:22→21:49)
[2018-01-19] MEDS: ONDANSETRON HCL 4 MG/2 ML VIAL IVP PRN (01:23)
[2018-01-19 04:44] LABS: CREATININE 0.7 mg/dL (0.5-1.5); POTASSIUM 3.5 mmol/L (3.5-5.1)
[2018-01-19] MEDS: METRONIDAZOLE 500MG/100ML BAG 100 ML IV SCH ×3 (05:29→21:52)
[2018-01-19] MEDS: POTASSIUM CHLORIDE 20MEQ/100ML 100 ML IV PRN (06:03)
[2018-01-19] MEDS: FAMOTIDINE/PF 20 MG/2 ML VIAL IV SCH (07:38)
[2018-01-19 09:12] LABS: HEMATOCRIT 21.9 % (36-48); MEAN CORPUSCULAR HEMOGLOBIN 33.7 pg (27.0-33.0); MEAN CORPUSCULAR HGB CONC 34.6 g/dL (32.0-36.0); MEAN CORPUSCULAR VOLUME 97.3 fL (79-99); NUCLEATED RED BLOOD CELLS 0.2 % (0.0-0.19); PLATELET COUNT (AUTO) 15 K/uL (130-400); RED BLOOD CELL COUNT(AUTO) 2.25 MIL/uL (4.00-5.50); RED CELL DISTRIBUTION WIDTH 15.8 % (11.0-15.5); WHITE BLOOD COUNT (AUTO) 1.3 K/uL (4.8-10.8)
[2018-01-19] MEDS: VANCOMYCIN 1GM+NS 250ML 250 ML IV SCH (13:41)
[2018-01-19] MEDS: CLINIMIX E 5%-15% 2,000 ML IV SCH (15:55)
[2018-01-19] MEDS ORDERED: TBO-FILGRASTIM 480 MCG/0.8 ML ML SQ SCH (17:00)
[2018-01-19] MEDS: LEVOFLOXACIN 500 MG/D5W 100 ML 100 ML IV SCH (21:53)
[2018-01-19] MEDS ORDERED: SODIUM CHLORIDE 0.9% 500ML 1,000 ML IV ONE (21:55)
[2018-01-20] VITALS (7 sets, daily range): BP systolic 122–156; BP diastolic 62–72
[2018-01-20] MEDS: FAMOTIDINE/PF 20 MG/2 ML VIAL IV SCH (08:53)
[2018-01-20] MEDS: METRONIDAZOLE 500MG/100ML BAG 100 ML IV SCH ×3 (08:53→22:03)
[2018-01-20] MEDS: MORPHINE SULFATE 4 MG/1ML SYG IVP PRN ×2 (10:06→16:24)
[2018-01-20] MEDS: VANCOMYCIN 1GM+NS 250ML 250 ML IV SCH ×2 (16:06→23:05)
[2018-01-20] MEDS ORDERED: PERMETHRIN LOTION 1% 59ML BOTTLE TP SCH (20:00)
[2018-01-20] MEDS ORDERED: TBO-FILGRASTIM 480 MCG/0.8 ML ML SQ SCH (20:30)
[2018-01-21 03:37] VITALS: BP 155/84
[2018-01-21] MEDS: CLINIMIX E 5%-15% 2,000 ML IV SCH (03:38)
[2018-01-21] MEDS ORDERED: DEXAMETHASONE SOD PHOSPHATE 4 MG/ML 1ML VIAL ONE (04:02)
[2018-01-21] MEDS ORDERED: DiphenhydrAMINE HCL 50 MG/ML VIAL ONE (04:02)
[2018-01-21] MEDS ORDERED: SODIUM CHLORIDE 0.9% 250 ML IV ONE (04:04)
[2018-01-21] MEDS: METRONIDAZOLE 500MG/100ML BAG 100 ML IV SCH ×3 (05:27→22:24)
[2018-01-21] MEDS: VANCOMYCIN 1GM+NS 250ML 250 ML IV SCH ×2 (06:28→15:36)
[2018-01-21] MEDS ORDERED: TBO-FILGRASTIM 480 MCG/0.8 ML ML SQ SCH (07:30)
[2018-01-21 08:01] VITALS: BP 137/70
[2018-01-21 11:44] VITALS: BP 138/71
[2018-01-21] MEDS: FAMOTIDINE/PF 20 MG/2 ML VIAL IV SCH (11:47)
[2018-01-21] MEDS: MEPERIDINE HCL/PF 25 MG/0.5 ML AMPUL IVP PRN ×2 (11:48→18:48)
[2018-01-21 14:32] LABS: HEMATOCRIT 25.3 % (36-48); LYMPHOCYTES % (AUTO) 2.8 % (21.0-51.0); MEAN CORPUSCULAR HEMOGLOBIN 32.7 pg (27.0-33.0); MEAN CORPUSCULAR HGB CONC 34.9 g/dL (32.0-36.0); MEAN CORPUSCULAR VOLUME 93.7 fL (79-99); MONOCYTES % (AUTO) 1.9 % (3.0-13.0); NEUTROPHILS % (AUTO) 95.3 % (40.0-77.0); NUCLEATED RED BLOOD CELLS 0.1 % (0.0-0.19); PLATELET COUNT (AUTO) 49 K/uL (130-400); RED CELL DISTRIBUTION WIDTH 17.9 % (11.0-15.5); WHITE BLOOD COUNT (AUTO) 8.8 K/uL (4.8-10.8)
[2018-01-21 14:46] LABS: PLATELET MORPHOLOGY COMMENT MARKED DECREASED
[2018-01-21] MEDS ORDERED: TBO-FILGRASTIM 300 MCG/0.5 ML ML SQ SCH (16:15)
[2018-01-21 16:37] VITALS: BP 143/58
[2018-01-21 19:21] VITALS: BP 117/63
[2018-01-21] MEDS: LEVOFLOXACIN 500 MG/D5W 100 ML 100 ML IV SCH (21:43)
[2018-01-21 23:30] VITALS: BP 121/55
[2018-01-22] MEDS: VANCOMYCIN 1GM+NS 250ML 250 ML IV SCH ×3 (00:19→14:55)
[2018-01-22] MEDS: CLINIMIX E 5%-15% 2,000 ML IV SCH (03:31)
[2018-01-22 03:36] VITALS: BP 123/60
[2018-01-22] MEDS ORDERED: MORPHINE SULFATE 4 MG/1ML SYG ONE (04:41)
[2018-01-22] MEDS: METRONIDAZOLE 500MG/100ML BAG 100 ML IV SCH ×3 (05:26→21:25)
[2018-01-22 05:44] LABS: HEMATOCRIT 23.4 % (36-48); MEAN CORPUSCULAR HEMOGLOBIN 32.4 pg (27.0-33.0); MEAN CORPUSCULAR HGB CONC 34.7 g/dL (32.0-36.0); MEAN CORPUSCULAR VOLUME 93.4 fL (79-99); NUCLEATED RED BLOOD CELLS 0.1 % (0.0-0.19); PLATELET COUNT (AUTO) 40 K/uL (130-400); RED CELL DISTRIBUTION WIDTH 17.4 % (11.0-15.5); WHITE BLOOD COUNT (AUTO) 8.2 K/uL (4.8-10.8)
[2018-01-22 05:56] LABS: ALBUMIN 1.7 g/dL (3.5-5.0); BILIRUBIN,TOTAL 0.3 mg/dL (0.2-1.0); CREATININE 0.8 mg/dL (0.5-1.5); TOTAL PROTEIN, SERUM 4.6 g/dL (6.0-8.3)
[2018-01-22 09:15] VITALS: BP 113/52
[2018-01-22] MEDS: FAMOTIDINE/PF 20 MG/2 ML VIAL IV SCH (10:58)
[2018-01-22] MEDS ORDERED: MORPHINE SULFATE 4 MG/1ML SYG IVP PRN (11:15)
[2018-01-22 12:03] VITALS: BP 129/61
[2018-01-22 16:07] VITALS: BP 128/62
[2018-01-22 19:33] VITALS: BP 125/58
[2018-01-22 23:38] VITALS: BP 135/54
[2018-01-22] MEDS: HYDROMORPHONE 1 MG/1 ML AMP IVP PRN (23:58)
[2018-01-23] MEDS: VANCOMYCIN 1GM+NS 250ML 250 ML IV SCH ×4 (00:04→22:11)
[2018-01-23 03:50] VITALS: BP 120/60
[2018-01-23] MEDS: METRONIDAZOLE 500MG/100ML BAG 100 ML IV SCH ×3 (05:25→22:07)
[2018-01-23 06:02] LABS: MEAN CORPUSCULAR HEMOGLOBIN 32.8 pg (27.0-33.0); MEAN CORPUSCULAR HGB CONC 34.5 g/dL (32.0-36.0); MEAN CORPUSCULAR VOLUME 95.2 fL (79-99); NUCLEATED RED BLOOD CELLS 1.4 % (0.0-0.19); PLATELET COUNT (AUTO) 29 K/uL (130-400); RED BLOOD CELL COUNT(AUTO) 3.78 MIL/uL (4.00-5.50); RED CELL DISTRIBUTION WIDTH 18.1 % (11.0-15.5); WHITE BLOOD COUNT (AUTO) 3.2 K/uL (4.8-10.8)
[2018-01-23 06:29] LABS: ALBUMIN 1.9 g/dL (3.5-5.0); BILIRUBIN,TOTAL 0.3 mg/dL (0.2-1.0); CREATININE 0.7 mg/dL (0.5-1.5); MAGNESIUM 1.7 mg/dL (1.80-2.40); PHOSPHORUS 2.4 mg/dL (2.5-4.9); POTASSIUM 4.1 mmol/L (3.5-5.1); TOTAL PROTEIN, SERUM 4.9 g/dL (6.0-8.3)
[2018-01-23 07:30] VITALS: BP 150/70
[2018-01-23] MEDS ORDERED: DEXTROSE 50%-WATER 50 ML DISP.SYRIN IV PRN (08:15)
[2018-01-23] MEDS ORDERED: GLUCAGON 1MG KIT 1 MG ML IM PRN (08:15)
[2018-01-23] MEDS: FAMOTIDINE/PF 20 MG/2 ML VIAL IV SCH (10:15)
[2018-01-23] MEDS: CLINIMIX E 5%-15% 2,000 ML IV SCH ×2 (10:22→13:19)
[2018-01-23 11:00] VITALS: BP 148/72
[2018-01-23] MEDS: INSULIN HUMULIN R 100 UNIT/ML 3ML SQ SCH ×3 (12:02→23:54)
[2018-01-23 16:00] VITALS: BP 155/70
[2018-01-23] MEDS: HYDROMORPHONE 1 MG/1 ML AMP IVP PRN ×2 (16:35→23:49)
[2018-01-23 20:00] VITALS: BP 138/60
[2018-01-23] MEDS ORDERED: MAGNESIUM 2GM PREMIX 50ML 50 ML IV SCH (20:15)
[2018-01-23] MEDS ORDERED: POTASSIUM PHOS 15 mMOL+NS250ML 250 ML IV SCH (20:15)
[2018-01-23] MEDS: LEVOFLOXACIN 500 MG/D5W 100 ML 100 ML IV SCH (21:11)
[2018-01-24] VITALS (24 sets, daily range): BP systolic 87–151; BP diastolic 43–76
[2018-01-24 04:57] LABS: CREATININE 0.7 mg/dL (0.5-1.5); PHOSPHORUS 2.4 mg/dL (2.5-4.9); POTASSIUM 3.7 mmol/L (3.5-5.1)
[2018-01-24 05:48] LABS: BASOPHILS % (AUTO) 0.4 % (0.0-5.0); EOSINOPHILS % (AUTO) 2.3 % (0.0-8.0); HEMATOCRIT 26.1 % (36-48); LYMPHOCYTES % (AUTO) 15.6 % (21.0-51.0); MEAN CORPUSCULAR HEMOGLOBIN 32.1 pg (27.0-33.0); MEAN CORPUSCULAR HGB CONC 34.4 g/dL (32.0-36.0); MEAN CORPUSCULAR VOLUME 93.3 fL (79-99); MONOCYTES % (AUTO) 10.4 % (3.0-13.0); NEUTROPHILS % (AUTO) 71.3 % (40.0-77.0); PLATELET COUNT (AUTO) 31 K/uL (130-400); RED CELL DISTRIBUTION WIDTH 17.8 % (11.0-15.5); WHITE BLOOD COUNT (AUTO) 3.9 K/uL (4.8-10.8)
[2018-01-24] MEDS: INSULIN HUMULIN R 100 UNIT/ML 3ML SQ SCH ×3 (05:51→18:00)
[2018-01-24 05:58] LABS: INR 1.08 (0.85-1.15); PROTHROMBIN TIME 11.3 SEC (9.6-11.6)
[2018-01-24] MEDS: METRONIDAZOLE 500MG/100ML BAG 100 ML IV SCH (06:27)
[2018-01-24] MEDS: VANCOMYCIN 1GM+NS 250ML 250 ML IV SCH (06:28)
[2018-01-24] MEDS: FAMOTIDINE/PF 20 MG/2 ML VIAL IV SCH (10:09)
[2018-01-24] MEDS: CLINIMIX E 5%-15% 2,000 ML IV SCH ×2 (13:20→21:20)
[2018-01-25] VITALS: BP 136/71
[2018-01-25] MEDS: INSULIN HUMULIN R 100 UNIT/ML 3ML SQ SCH ×4 (00:24→16:57)
[2018-01-25 04:00] VITALS: BP 154/67
[2018-01-25 05:15] LABS: HEMATOCRIT 27.1 % (36-48); MEAN CORPUSCULAR HEMOGLOBIN 32.9 pg (27.0-33.0); MEAN CORPUSCULAR HGB CONC 35.1 g/dL (32.0-36.0); MEAN CORPUSCULAR VOLUME 93.5 fL (79-99); NUCLEATED RED BLOOD CELLS 0.2 % (0.0-0.19); PLATELET COUNT (AUTO) 76 K/uL (130-400); RED BLOOD CELL COUNT(AUTO) 2.89 MIL/uL (4.00-5.50); RED CELL DISTRIBUTION WIDTH 17.6 % (11.0-15.5); WHITE BLOOD COUNT (AUTO) 3.8 K/uL (4.8-10.8)
[2018-01-25 05:26] LABS: ALBUMIN 2.1 g/dL (3.5-5.0); BAND NEUTROPHILS % (MANUAL) 15 % (0-2); BILIRUBIN,TOTAL 0.3 mg/dL (0.2-1.0); CREATININE 0.8 mg/dL (0.5-1.5); EOSINOPHILS % (MANUAL) 1 % (1-6); LYMPHOCYTES % (MANUAL) 16 % (22-44); MAGNESIUM 1.9 mg/dL (1.80-2.40); MAN.DIFF COMMENT-IMPRESSION MANUAL DIFFERENTIAL; MONOCYTES % (MANUAL) 19 % (2-9); PHOSPHORUS 1.6 mg/dL (2.5-4.9); PLATELET MORPHOLOGY COMMENT DECREASED; POTASSIUM 3.9 mmol/L (3.5-5.1); SEGMENTED NEUTROPHILS % 49 % (40-70); TOTAL PROTEIN, SERUM 5.1 g/dL (6.0-8.3)
[2018-01-25] MEDS ORDERED: PHARMACY COMMUNICATION MISC SCH (07:15)
[2018-01-25 07:42] VITALS: BP 186/86
[2018-01-25] MEDS ORDERED: IPRATROPIUM/ALBUTEROL SULFATE 3 ML SOLUTION IH PRN (09:15)
[2018-01-25] MEDS: FAMOTIDINE/PF 20 MG/2 ML VIAL IV SCH (10:38)
[2018-01-25 12:00] VITALS: BP 137/74
[2018-01-25 16:00] VITALS: BP 129/78
== END 2018-01-25 18:20 | DRG 871 ==
LOC: EDH 14:49 → EDHIP 15:26 → EEVIPCON 15:26 → INTOOBSV 15:26 → OBSVTOIN 15:26 → 3BH 17:56 → 2BH 01-17 19:59 → 2CH 01-17 21:56 → 3DH 01-19 16:13 → 2CH 01-19 16:40 → 3DH 01-19 16:42
PROVIDERS: ADMIT Internal Medicine Hematology & Oncology; ATTEND Internal Medicine Hematology & Oncology
PROC: 0DH63UZ Insertion of Feeding Device into Stomach, Percutaneous Approach (ICD-10-PCS; principal; 2018-01-24)
DX: A41.9 Sepsis, unspecified organism (principal); I63.9 Cerebral infarction, unspecified; G93.40 Encephalopathy, unspecified; E43 Unspecified severe protein-calorie malnutrition; K57.32 Diverticulitis of large intestine without perforation or abscess without bleeding; C79.51 Secondary malignant neoplasm of bone; C25.9 Malignant neoplasm of pancreas, unspecified; D61.818 Other pancytopenia; E87.1 Hypo-osmolality and hyponatremia; E44.1 Mild protein-calorie malnutrition; A09 Infectious gastroenteritis and colitis, unspecified; G81.91 Hemiplegia, unspecified affecting right dominant side; C77.9 Secondary and unspecified malignant neoplasm of lymph node, unspecified; C18.9 Malignant neoplasm of colon, unspecified; R47.01 Aphasia; K52.9 Noninfective gastroenteritis and colitis, unspecified; E86.0 Dehydration; R60.1 Generalized edema; E87.5 Hyperkalemia; Z51.5 Encounter for palliative care; Z85.3 Personal history of malignant neoplasm of breast
CPT/HCPCS: 31720; 36415; 36430; 43235; 70450; 70553; 71045; 71046; 74176; 80048; 80053; 80061; 80076; 80202; 82140; 82150; 82948; 83036; 83605; 83690; 83735; 84100; 84484; 85025; 85027; 85378; 85384; 85610; 85730; 85732; 86147; 86757; 86850; 86900; 86901; 86922; 87046; 87177; 87205; 87324; 87507; 92610; 93005; 93306; 93880; 93970; 94640; 94664; 97039; A9579; J1100; J1170; J1200; J1815; J1956; J2175; J2270; J2405; J3370; J3475; J3480; J3490; J7030; J7040; P9016; P9034; Q0163